=== PATIENT | male | born 1990 ===

== ENCOUNTER 2021-07-23 11:33 | Emergency (ER) | payer SELFPAY ==
[2021-07-23 12:20] VITALS: BP 138/67
[2021-07-23] MEDS ORDERED: BUTALB/ACETAMINOPHEN/CAFFEINE TAB PO ONE (14:26)
[2021-07-23] MEDS ORDERED: ONDANSETRON 4 MG ODT TAB PO ONE (14:26)
[2021-07-23] MEDS ORDERED: levETIRAcetam 1000 MG/NS 0.75% 1,000 MG/100 ML BAG IV ONE (14:26)
--- NOTE | 2021-07-23 14:30 | Emergency Department Report ---
HPI - General Chief Complaint: Seizure Time Seen by Provider: 07/23/21 14:19 - HPI HPI: MSE 3 The patient is a 31-year-old male present with a chief complaint of seizure. Patient has a history of seizure disorder states has been out of his Keppra all of this month. Patient states he had 2 seizures over this past weekend with the last occurring yesterday. Patient now complains of mild headache, nausea and soreness to his tongue. Patient states he currently does not have a neurologist ED Past Medical Hx - Past Medical History Previous Medical History?: Yes Hx Seizures: Yes Additional medical history: Crohn's disease - Surgical History Past Surgical History?: No Hx Appendectomy: Yes - Family History Family history: no significant - Social History Smoking Status: Current Some Day Smoker Substance Use Type: Alcohol (Occasional), Marijuana - Medications Home Medications: Home Medications Medication Instructions Recorded Confirmed Last Taken Type levETIRAcetam [Keppra TAB] 500 mg PO BID #90 tablet 07/23/21 Unknown Rx ED Review of Systems ROS: Stated complaint: SEZIURE X3 IN 1WK Other details as noted in HPI Constitutional: no symptoms reported Eyes: denies: eye pain ENT: denies: throat pain Respiratory: no symptoms reported Cardiovascular: denies: chest pain Endocrine: no symptoms reported Gastrointestinal: nausea. denies: abdominal pain Genitourinary: denies: dysuria Musculoskeletal: denies: back pain Neurological: headache Physical Exam - Physical Exam Vital Signs: Vital Signs 07/23/21 12:15 Temperature 98.3 F Pulse Rate 98 H Respiratory 16 Rate Blood Pressure 138/67 [Left] O2 Sat by Pulse 97 Oximetry Physical Exam: GENERAL: The patient is well-developed well-nourished male lying on stretcher not appearing to be in acute distress. [] HEENT: Normocephalic. Atraumatic. Extraocular motions are intact. Patient has moist mucous membranes. NECK: Supple. Trachea midline CHEST/LUNGS: Clear to auscultation. There is no respiratory distress noted. HEART/CARDIOVASCULAR: Regular. There is no tachycardia. There is no gallop rub or murmur. ABDOMEN: Abdomen is soft, nontender. Patient has normal bowel sounds. There is no abdominal distention. SKIN: There is no rash. There is no edema. There is no diaphoresis. NEURO: The patient is awake, alert, and oriented. The patient is cooperative. The patient has no focal neurologic deficits. The patient has normal speech. Cranial nerves II through XII grossly intact. GCS 15 MUSCULOSKELETAL: There is no evidence of acute injury. ED Course Vital Signs 07/23/21 12:15 Temperature 98.3 F Pulse Rate 98 H Respiratory 16 Rate Blood Pressure 138/67 [Left] O2 Sat by Pulse 97 Oximetry ED Medical Decision Making - Lab Data Result diagrams: 07/23/21 15:07 07/23/21 15:07 Laboratory Tests 07/23/21 07/23/21 07/23/21 15:07 15:07 15:07 WBC 5.5 RBC 5.52 H Hgb 16.7 H Hct 51.3 H MCV 93 MCH 30 MCHC 33 RDW 14.4 Plt Count 347 Lymph % (Auto) 40.5 H [place] % (Auto) 7.9 H Eos % (Auto) 2.4 Baso % (Auto) 1.0 Lymph # (Auto) 2.2 [place] # (Auto) 0.4 Eos # (Auto) 0.1 Baso # (Auto) 0.1 Seg Neutrophils % 48.2 Seg Neutrophils # 2.7 Sodium 141 Potassium 3.6 Chloride 103.4 Carbon Dioxide 25 Anion Gap 16 BUN 9 Creatinine 0.7 L Estimated GFR > 60 BUN/Creatinine Ratio 13 Glucose 88 Calcium 9.4 Magnesium 2.10 - Differential Diagnosis Seizure Critical care attestation.: If time is entered above; I have spent that time in minutes in the direct care of this critically ill patient, excluding procedure time. ED Disposition Clinical Impression: Seizure Disposition: 01 HOME / SELF CARE / HOMELESS Is pt being admited?: No Does the pt Need Aspirin: No Condition: Stable Instructions: Epilepsy, [id number] Additional Instructions: Return to the emergency department should you develop worsening symptoms, inability to tolerate food or liquids, high fever or any other concerns Prescriptions: levETIRAcetam [Keppra TAB] 500 mg PO BID #90 tablet Referrals: KAUR BRANCH MD [Staff Physician] - 3-5 Days (Dr. Branch is a neurologist. Please follow-up with him for further evaluation) Time of Disposition: 16:14
[2021-07-23 15:49] LABS: Basophils # (Auto) 0.1 K/mm3 (0.0-0.1); Eosinophils # (Auto) 0.1 K/mm3 (0.0-0.4); Eosinophils % (Auto) 2.4 % (0.0-4.3); Hematocrit 51.3 % (35.5-45.6); Hemoglobin 16.7 gm/dl (11.8-15.2); Lymphocytes # (Auto) 2.2 K/mm3 (1.2-5.4); Lymphocytes % (Auto) 40.5 % (13.4-35.0); Mean Corpuscular HGB Conc 33 % (32-34); Mean Corpuscular Volume 93 fl (84-94); Monocytes # (Auto) 0.4 K/mm3 (0.0-0.8); Monocytes % (Auto) 7.9 % (0.0-7.3); Platelet Count 347 K/mm3 (140-440); Red Blood Count 5.52 M/mm3 (3.65-5.03); Red Cell Distribution Width 14.4 % (13.2-15.2)
[2021-07-23 16:09] LABS: Blood Urea Nitrogen 9 mg/dL (9-20); Calcium 9.4 mg/dL (8.4-10.2); Hemolysis Index 8
[2021-07-23 16:12] LABS: BUN/Creatinine Ratio 13
== END 2021-07-25 04:31 | disposition home or self-care (01) ==
LOC: ED 11:33
DX: G40.909 Epilepsy, unspecified, not intractable, without status epilepticus (principal); F17.200 Nicotine dependence, unspecified, uncomplicated; F12.10 Cannabis abuse, uncomplicated
CPT/HCPCS: 36415; 80048; 83735; 85025; 96365; 99283; J1953; J3490; Q0162